=== PATIENT | female | born 1980 | race Caucasian/White ===

== ENCOUNTER 2020-09-10 09:34 | Emergency (ER) | payer OTHER, MEDICAID, SELFPAY ==
[2020-09-10] VITALS (10 sets, daily range): BP systolic 101–132; BP diastolic 62–74; PULSE 53–74; RESP 12–40; TEMP 36.2; O2SAT 97–100; BMI 23.3
--- NOTE | 2020-09-10 09:52 | DI.US.S_ITS ---
PROCEDURE: US ABDOMEN LIMITED INDICATIONS: Right upper quadrant pain TECHNIQUE: Real-time focused scanning was performed of the abdomen, with image documentation. COMPARISON: None. FINDINGS: The liver is normal in size and demonstrates no focal lesions. No findings of gallstones or sludge are seen. The gallbladder wall is not thickened, measuring 3 mm or less. No specific pericholecystic fluid is seen. The sonographic Abdi sign is negative. There is no biliary dilatation, the common bile duct measures 4 mm. No significant pancreatic abnormality is seen on these images. The right kidney is seen within the right pelvis. There is a prominent mass seen within the right kidney with increased vascularity that measures 3.4 x 2.6 x 2.4 cm. IMPRESSION: The gallbladder demonstrates a normal sonographic appearance. No biliary dilatation is seen. Incidental note is made of a right pelvic kidney, with a 3.4 cm vascular mass which is suspicious for renal cell carcinoma. If clinically appropriate, please consider a dedicated renal mass protocol CT (tailored for the right pelvic kidney) or a CT urogram (without and with contrast) for further evaluation. Note: Findings and recommendations discussed by telephone with Dr. Rivas at 9:35 a.m. [place] time on September 10, 2020. Dictated by: Evans Acevedo M.D. on 09/10/2020 at 9:32 Approved by: Evans Acevedo M.D. on 09/10/2020 at 9:38
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
[2020-09-10] MEDS: ONDANSETRON 4 MG ODT SL (09:58)
--- NOTE | 2020-09-10 10:02 | PC.NURSE ---
Attempted IV start x1. No success. DI called for US IV. US for ABD in room right now.
--- NOTE | 2020-09-10 10:45 | DI.CT.S_ITS ---
PROCEDURE: CT ABDOMEN PELVIS W CON INDICATIONS: vomiting with right renal mass TECHNIQUE: After the administration of intravenous contrast, 5 mm thick sections acquired from the diaphragm to the symphysis. 5 mm coronal and sagittal reformats were acquired. For radiation dose reduction, the following was used: automated exposure control, adjustment of mA and/or kV according to patient size. In addition, a delayed extra [place] phase was obtained. COMPARISON: None. FINDINGS: Image quality: Excellent. ABDOMEN: Lung bases: Lung bases are clear. Heart size is normal. Solid organs: Liver is normal in size and enhancement. Gallbladder is unremarkable . Biliary system is non dilated. Pancreas enhances normally. Spleen is normal in size and enhancement. No adrenal nodules. Left kidney is unremarkable. The right kidney is located within the lower right hemiabdomen. The area identified as potential mass on recent ultrasound appears to represent renal cortex based on arterial and excretory phase. 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 Peritoneum and bowel: Bowel loops demonstrate normal wall thickness and caliber. No free fluid or air. Moderate stool. Nodes and vessels: No retroperitoneal or mesenteric adenopathy by size criteria. Aorta and inferior vena cava are normal in size. Miscellaneous: No ventral hernias. PELVIS: Genitourinary: Bladder wall thickness is normal. Miscellaneous: No inguinal hernias or adenopathy. Bones: No suspicious bony lesions. No vertebral body compression fractures. IMPRESSION: 1. Congenitally ectopic right kidney as above. Given presence of duplicated collecting system as well as areas of lobulation, this could account for appearance of potential mass on ultrasound. However, no definitive mass is identified on CT. However, given lack of prior exams for comparison, six-month interval standard renal protocol CT is recommended to document stability. 2. Mild colonic stool without obstruction. Dictated by: Sri Corona M.D. on 09/10/2020 at 12:43 Approved by: Sri Corona M.D. on 09/10/2020 at 12:54
[2020-09-10] MEDS: PANTOPRAZOLE 40 MG VIAL IV (10:55)
[2020-09-10] MEDS: SODIUM CHLORIDE 0.9% 1,000 ML 1000 ML IV (10:55)
[2020-09-10 10:56] LABS: Add Manual Diff / Slide Review NO; Basophils Absolute Auto 200 /uL (0-100); Basophils Percent Auto 2.3 % (0-2); Eosinophils Absolute Auto 100 /uL (0-450); Hematocrit 40.6 % (36-46); Hemoglobin 13.7 g/dL (12.0-16.0); Lymphocytes Absolute Auto 3000 /uL (1100-4500); Lymphocytes Percent Auto 41.1 % (25-40); Mean Corpuscular HGB Conc 33.8 % (30-36); Mean Corpuscular Hemoglobin 30.6 PG (26-34); Mean Corpuscular Volume 90.7 fL (80-100); Monocytes Absolute Auto 500 /uL (0-900); Monocytes Percent Auto 7.3 % (3-14); Neutrophils Absolute Auto 3500 /uL (1500-7000); Neutrophils Percent Auto 48.3 % (50-75); Platelet Count 231 X10^3/uL (150-400); Red Blood Cell Count 4.47 X10^6/uL (4.0-5.2); Red Cell Distribution Width 13.5 % (11.6-14.8); White Blood Cell Count 7.3 X10^3/uL (4.5-11.0)
[2020-09-10 10:57] LABS: RBC Urine None Seen (0-5/HPF)
[2020-09-10 10:59] LABS: Appearance Urine UA SL CLOUDY; Bilirubin Urine UA NEGATIVE (NEGATIVE); Color Urine UA YELLOW; Glucose Urine UA NEGATIVE (Negative); Ketones Urine UA NEGATIVE (NEGATIVE); Leukocyte Esterase Urine UA NEGATIVE (NEGATIVE); Nitrite Urine UA POSITIVE (Negative); Occult Blood Urine UA TRACE-LYSED (Negative); Protein Urine UA 1+ (Negative); Specific Gravity Urine UA 1.015 (1.000-1.035)
[2020-09-10 11:06] LABS: Pregnancy Test Urine Negative (Negative)
[2020-09-10 11:10] LABS: Alanine Aminotransferase 16 IU/L (<35); Albumin Globulin Ratio 1.1 (1.0-2.8); Alkaline Phosphatase 80 U/L (38-126); Aspartate Aminotransferase 28 IU/L (14-36); BUN Creatinine Ratio 15.4 (6-22); Bilirubin Total 0.6 mg/dL (0.2-1.3); Blood Urea Nitrogen 10 mg/dL (7-17); Calcium 9.3 mg/dL (8.4-10.2); Carbon Dioxide 33 mmol/L (22-32); Chloride 101 mmol/L (98-107); Estimated Glomerular Filt Rate > 60.0 mL/min (>60); Globulin 3.6 g/dL (1.7-4.1); Glucose 97 mg/dL (70-100); HEMOLYSIS 24 (0-50); Lipase 163 U/L (23-300); Sodium 135 mmol/L (137-145); Total Protein 7.6 g/dL (6.3-8.2)
[2020-09-10 11:17] LABS: Bacteria Urine Many (>30); Culture Indicated Urine Specimen Cultured; Squamous Epithelial Cell Urine 1-5 /HPF (0-5/HPF); WBC Urine 0-1/HPF (0-5/HPF)
[2020-09-10 11:18] LABS: Lactate (Lactic Acid) 1.1 mmol/L (0.7-2.1)
[2020-09-10] MEDS: ONDANSETRON 4 MG/2 ML INJ IV (11:34)
[2020-09-10] MEDS: KETOROLAC 60 MG/2 ML VIAL 15 MG IV (12:33)
--- NOTE | 2020-09-10 12:43 | PC.NURSE ---
Pt anxious, asking about leaving and signing out, I can just be sick at home. I Informed Dr Rivas that patient is escalating. Dr Rivas spoke to patient.
== END 2020-09-10 13:32 | disposition home or self-care (01) ==
PROVIDERS: Emergency Provider Emergency Medicine
DX: Q63.2 Ectopic kidney (principal); N30.01 Acute cystitis with hematuria; R10.11 Right upper quadrant pain; R11.2 Nausea with vomiting, unspecified
CPT/HCPCS: 36415; 74177; 76705; 80053; 81001; 81025; 83605; 83690; 85025; 87040; 87077; 87086; 87186; 96361; 96374; 96375; 99284; C9113; J1885; J2405; Q9967